=== PATIENT | female | born 1995 | race Caucasian/White ===

== ENCOUNTER 2023-10-04 04:13 | Day surgery (SDC) | payer OTHER ==
[2023-10-03 11:26] VITALS: BMI 27.2
[2023-10-04] MEDS ORDERED: LIDOCAINE 1%/EPI 1:100000 (20 ML MULTI DOSE VIAL) IJ ONE ×3 (13:24→13:45)
[2023-10-04] MEDS ORDERED: OXYMETAZOLINE 0.05% NASAL SOLUTION 15 ML BOTTLE NS ONE ×2 (13:24→13:45)
[2023-10-04] MEDS ORDERED: DEXMEDETOMIDINE HCL 200 MCG/2 ML IVPB ONE (13:25)
[2023-10-04] MEDS ORDERED: PROPOFOL 40 ML ONE (13:26)
[2023-10-04] MEDS ORDERED: MIDAZOLAM HCL 2 MG/2 ML SINGLE DOSE VIAL ONE (13:27)
[2023-10-04] MEDS ORDERED: SUCCINYLCHOLINE CHLORIDE 200 MG/10 ML SYRINGE ONE (13:27)
[2023-10-04] MEDS ORDERED: LIDOCAINE HCL/PF 2% SDV 5ML VIAL ONE (13:28)
[2023-10-04] MEDS ORDERED: ceFAZolin SODIUM 1 GM VIAL IVPB ONE (13:45)
[2023-10-04] MEDS ORDERED: DEXAMETHASONE SOD PHOSPHATE 4 MG/1 ML VIAL ONE (13:52)
[2023-10-04] MEDS ORDERED: ONDANSETRON 4 MG/2 ML VIAL ONE (13:52)
[2023-10-04] MEDS ORDERED: SUGAMMADEX SODIUM 200 MG/2 ML VIAL ONE (13:59)
[2023-10-04] MEDS ORDERED: ONDANSETRON 4 MG/2 ML VIAL IVPUSH PRN (14:42)
[2023-10-04] MEDS ORDERED: ACETAMINOPHEN 1000 MG/100 ML BAG IVPB ONE ×2 (14:42→14:59)
[2023-10-04] MEDS ORDERED: LACTATED RINGERS SOLUTION 1,000 ML IV SCH (14:45)
[2023-10-04 16:11] VITALS: TEMP 97.8
[2023-10-04] MEDS ORDERED: oxyCODONE HCL 5 MG TABLET ONE (17:55)
[2023-10-04 18:16] VITALS: BP 106/66; PULSE 65; RESP 17
[2023-10-04] MEDS ORDERED: oxyCODONE HCL 5 MG TABLET PO ONE (18:30)
== END 2023-10-04 18:18 | disposition home or self-care (01) ==
LOC: JASU-SURG 04:13
PROVIDERS: ATTEND Otolaryngology
PROC: 09TL7ZZ Resection of Nasal Turbinate, Via Natural or Artificial Opening (ICD-10-PCS; 2023-10-04)
PROC: 0CTPXZZ Resection of Tonsils, External Approach (ICD-10-PCS; principal; 2023-10-04 14:00)
PROC: 0CTQ0ZZ Resection of Adenoids, Open Approach (ICD-10-PCS; 2023-10-04 14:00)
DX: J35.3 Hypertrophy of tonsils with hypertrophy of adenoids (principal); J34.3 Hypertrophy of nasal turbinates
CPT/HCPCS: 81025; 94760

== ENCOUNTER 2024-09-15 20:22 | Inpatient (IN) | payer OTHER ==
[2024-09-15 22:07] LABS: BASO % 0.5 % (0-2.0); EOS % 0.3 % (0-4.5); LYMPH % 14.4 % (8-40); MCH 27.7 pg (25.7-33.7); MCHC 31.8 g/dl (32.0-36.0); MEAN PLT VOLUME 9.9 fl (7.5-11.1); MONO % 4.3 % (3.8-10.2); NEUT % 80.5 % (42.8-82.8); PLATELET COUNT 155 10^3/uL (134-434); RBC 4.71 M/mm3 (3.60-5.2); RDW 14.4 % (11.6-15.6); WHITE BLOOD COUNT 15.9 K/mm3 (4.0-10.0)
[2024-09-15 22:13] LABS: INR 0.95 (0.83-1.09); PROTHROMBIN TIME (PATIENT) 10.8 SEC (9.7-13.0)
[2024-09-15] MEDS ORDERED: AMPICILLIN SODIUM 2 GM VIAL ONE (22:14)
[2024-09-15] MEDS: LACTATED RINGERS SOLUTION 1,000 ML IV SCH (22:15)
[2024-09-15 22:16] LABS: ACTIVATED PTT 31.3 SECONDS (25.2-36.5)
[2024-09-15] MEDS: AMPICILLIN - 2 GM in SODIUM CHLORIDE 100 ML IVPB ONE (22:18)
[2024-09-15 22:40] LABS: POTASSIUM 4.5 mmol/L (3.5-5.1)
[2024-09-15 22:41] VITALS: BMI 33.3
[2024-09-15 22:42] LABS: BLOOD UREA NITROGEN 5.6 mg/dL (7-18); CALCIUM 9.1 mg/dL (8.5-10.1)
[2024-09-15 22:46] LABS: CREATININE 0.7 mg/dL (0.55-1.3)
[2024-09-15 23:22] LABS: HIV INTERPRETATION NEGATIVE (NEGATIVE)
[2024-09-16] MEDS ORDERED: AMPICILLIN SODIUM 1 GM VIAL ONE ×4 (01:01→14:32)
[2024-09-16] MEDS: AMPICILLIN - 1 GM in SODIUM CHLORIDE 100 ML IVPB SCH (01:08)
[2024-09-16] MEDS ORDERED: FENTANYL/BUPIVACAINE/NS/PF - PCEA - 50 ML DISP.SYRIN EP ONE ×4 (01:32→16:03)
[2024-09-16] MEDS ORDERED: FENTANYL CITRATE/PF 50 MCG/ML VIAL ONE (01:40)
[2024-09-16] MEDS ORDERED: BUPIVACAINE HCL/PF 0.25% (2.5MG/ML) 10 ML VIAL ONE (01:40)
[2024-09-16] MEDS: FENTANYL/BUPIVACAINE/NS/PF - PCEA - 50 ML DISP.SYRIN EP SCH (01:55)
[2024-09-16] MEDS ORDERED: NALOXONE HCL 0.4 MG/ML VIAL IVPUSH PRN (02:02)
[2024-09-16] MEDS: ELECTROLYTE-148 SOLN 1,000 ML IV SCH (02:51)
[2024-09-16] MEDS ORDERED: OXYTOCIN 30 UNITS in 0.9% NS 30 UNIT/500 ML INFUS.BAG IVPB ONE (07:54)
[2024-09-16] MEDS: OXYTOCIN 30 UNITS in 0.9% NS 30 UNIT/500 ML INFUS.BAG IVPB SCH (08:03)
[2024-09-16] MEDS ORDERED: OXYTOCIN 20 UNITS in 0.9% NS 20 UNIT/1,000 ML INFUS.BAG IV ONE (17:12)
[2024-09-16] MEDS ORDERED: LIDOCAINE HCL 1% PRESERVATIVE FREE - 30ML VIAL ONE (18:13)
[2024-09-16] MEDS: OXYTOCIN 20 UNITS in 0.9% NS 20 UNIT/1,000 ML INFUS.BAG IV SCH (18:30)
[2024-09-16] MEDS ORDERED: ACETAMINOPHEN 325 MG TABLET (FP) PO PRN (18:34)
[2024-09-16] MEDS ORDERED: BENZOCAINE 28 GM HEMORRHOIDAL OINTMENT TP PRN (18:34)
[2024-09-16] MEDS ORDERED: WITCH HAZEL 50% (TUCKS) 40 PAD/JAR PAD TP PRN (18:34)
[2024-09-16] MEDS ORDERED: METHYLERGONOVINE MALEATE 0.2 MG/1 ML AMP IM PRN (18:34)
[2024-09-16] MEDS ORDERED: BENZOCAINE 20% 57 GM BOTTLE TP PRN (18:34)
[2024-09-16] MEDS ORDERED: BISACODYL 10 MG SUPP.RECT RC PRN (18:34)
[2024-09-16 18:54] LABS: CORD BASE EXCESS -5.7 mmol/L (0-2); CORD HCO3 19.9 mmHg (20-29); CORD PCO2 39.7 mmHg (30-78); CORD pH 7.319 (7.14-7.44)
[2024-09-16 18:55] LABS: CORD BASE EXCESS -7.5 mmol/L (0-2); CORD HCO3 19.4 mmHg (20-29); CORD PCO2 44.1 mmHg (30-78); CORD pH 7.261 (7.14-7.44)
[2024-09-16] MEDS: IBUPROFEN 600 MG TABLET (FP) PO PRN (21:07)
[2024-09-17 07:27] LABS: HEMATOCRIT 34.6 % (32.4-45.2); MCH 27.5 pg (25.7-33.7); MCHC 31.6 g/dl (32.0-36.0); MEAN CELL VOLUME 86.9 fl (80-96); PLATELET COUNT 133 10^3/uL (134-434); RBC 3.99 M/mm3 (3.60-5.2); RDW 14.6 % (11.6-15.6); WHITE BLOOD COUNT 25.5 K/mm3 (4.0-10.0)
[2024-09-17 10:46] LABS: ANISOCYTOSIS 0; HELMET CELLS 0; HOWELL-JOLLY BODIES 0; MACROCYTOSIS 0; OVALOCYTE 0; ROULEAU 0; SICKELED CELLS 0; TARGET CELLS 0; TEAR DROP CELLS 0; TOXIC GRANULATION 0
[2024-09-17] MEDS ORDERED: SENNOSIDES/DOCUSATE COMBO (SENNA PLUS) TABLET (UD) PO PRN (22:00)
[2024-09-18 08:50] VITALS: BP 100/62; PULSE 78; RESP 16; TEMP 97.9
== END 2024-09-18 15:30 | disposition home or self-care (01) | DRG 807 ==
LOC: JDEL 20:22 → JLDR 21:35 → J3W 09-16 21:10
PROVIDERS: ADMIT Obstetrics & Gynecology; ATTEND Obstetrics & Gynecology
PROC: 0HQ9XZZ Repair Perineum Skin, External Approach (ICD-10-PCS; principal; 2024-09-16)
PROC: 10E0XZZ Delivery of Products of Conception, External Approach (ICD-10-PCS; 2024-09-16)
DX: O48.0 Post-term pregnancy (principal); Z37.0 Single live birth; Z3A.40 40 weeks gestation of pregnancy; O99.824 Streptococcus B carrier state complicating childbirth; O70.0 First degree perineal laceration during delivery
CPT/HCPCS: 36415; 36600; 59025; 59409; 80048; 82803; 85025; 85610; 85730; 86780; 86850; 86900; 86901; 87389